=== PATIENT | female | born 2005 ===

== ENCOUNTER 2024-08-06 14:10 | Emergency (ER) | payer MEDICAID ==
[~2024-08-06] VITALS: Ht 162.6 cm; Wt 68.2 kg
[2024-08-06 14:15] VITALS: TEMP 98.3
[2024-08-06] MEDS: HYDROCODONE/ACETAMINOPHEN 5-325 MG TABLET PO ONE (15:48)
[2024-08-06] MEDS ORDERED: HYDR-4062 PO (16:40)
[2024-08-06] MEDS ORDERED: IBUP-1492 PO (16:41)
[2024-08-06 16:58] VITALS: BP 130/76; PULSE 78; RESP 18; O2SAT 99
== END 2024-08-06 16:59 | disposition home or self-care (01) ==
LOC: EMS 14:10
DX: S52.514A Nondisplaced fracture of right radial styloid process, initial encounter for closed fracture (principal); S52.614A Nondisplaced fracture of right ulna styloid process, initial encounter for closed fracture; E84.9 Cystic fibrosis, unspecified; V00.841A Fall from standing electric scooter, initial encounter; Y93.89 Activity, other specified; Y92.89 Other specified places as the place of occurrence of the external cause; Y99.8 Other external cause status
CPT/HCPCS: 99284; 73090-TC; 73110-TC; Z7502; Z7610